=== PATIENT | male | born 1995 | race Hispanic/Latino ===

== ENCOUNTER 2023-03-24 08:45 | Emergency (ER) | payer OTHER ==
[2023-03-24] MEDS ORDERED: LIDOCAINE 1% MPF 30 ML VIAL ONE (09:31)
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
[2023-03-24 10:13] VITALS: TEMP 98.2
[2023-03-24 10:14] VITALS: BP 128/81; O2SAT 100
== END 2023-03-24 10:05 | disposition home or self-care (01) ==
LOC: ER 08:45
PROC: 0JQ13ZZ Repair Face Subcutaneous Tissue and Fascia, Percutaneous Approach (ICD-10-PCS; principal; 2023-03-24)
DX: S01.81XA Laceration without foreign body of other part of head, initial encounter (principal); S09.90XA Unspecified injury of head, initial encounter; Y09 Assault by unspecified means; Y92.89 Other specified places as the place of occurrence of the external cause; Z88.0 Allergy status to penicillin
CPT/HCPCS: 70450; 72125; 99284; 12011; J2001